=== PATIENT | male | born 1980 | race Caucasian/White ===

== ENCOUNTER 2018-09-23 17:01 | Inpatient (IN) | payer OTHER ==
[2018-09-23 19:44] VITALS: BMI 25.4
--- NOTE | 2018-09-23 21:31 | HP ---
COWS - Scale Resting Pulse: 1= LA 81-100 Sweatin=Flushed/Facial Moisture Restless Observation: 3= Extraneous Movement Pupil Size: 0= Normal to Room Light Bone or Joint Aches: 0= None Runny Nose/ Eye Tearin= Runny Nose/Eyes GI Upset > 30mins: 1= Stomach Cramp Tremor Observation: 0= None Yawning Observation: 1= 1-2x During Session Anxiety or Irritability: 2=Irritable/Anxious Goose Flesh Skin: 0=Smooth Skin COWS Score: 12 CIWA Score - Admission Criteria [facility] Guidelines: Admission for Medically Managed Detox: Requires at least one of the followin. CIWA greater than 12 2. Seizures within the past 24 hours 3. Delirium tremens within the past 24 hours 4. Hallucinations within the past 24 hours 5. Acute intervention needed for co occurring medical disorder 6. Acute intervention needed for co occurring psychiatric disorder 7. Severe withdrawal that cannot be handled at a lower level of care (continued vomiting, continued diarrhea, abnormal vital signs) requiring intravenous medication and/or fluids 8. Admission [facility] Chief Complaint: c/o withdrawal sx's. seeking detox Allergies/Adverse Reactions: Allergies Allergy/AdvReac Type Severity Reaction Status Date / Time No Known Allergies Allergy Verified 09/23/18 21:26 History of Present Illness: 38 Y.O. MALE WITH HX/O POLY SUBSTANCE ABUSE HERE FOR HEROIN DETOX. STEPHANIE IS REFERRED BY [facility] AFTER PRESENTING THERE FOR DETOX AND THERE WERE NO BEDS. HE PRESENTS WITH C/O WORSENING WITHDRAWAL SX'S. COWS 12. DENIES ETOH USE. ELIANE. O. UTOX + THC, MTD, RICHARD, OPI. CLIENT STATES HE IS NOT MMTP. DENIES MEDICAL AND PSYCH HX/O. DENIES SI/HI, AVH AND HX/O OVERDOSE. REPORTS LONGEST CLEAN TIME 3 MONTHS WHILE INCARCERATED. LAST DETOX 1 MONTH AGO AT THE [facility] IMMEDIATELY RELAPSING AFTER DC. HOMELESS, UNEMPLOYED, DENIES LEGALS. Exam Limitations: No Limitations - Ebola screening Have you traveled outside of the country in the last 21 days: No (N) Have you had contact with anyone from an Ebola affected area: No Have you been sick,other than usual withdrawal symptoms: No Do you have a fever: No - Review of Systems Constitutional: Chills, Night Sweats, Changes in sleep, Unintentional Wgt. Loss EENT: reports: No Symptoms Reported Respiratory: reports: No Symptoms reported Cardiac: reports: No Symptoms Reported GI: reports: Diarrhea, Abdominal cramping : reports: No Symptoms Reported Musculoskeletal: reports: Back Pain (DUE TO WITHDRAWAL) Integumentary: reports: Flushing Neuro: reports: No Symptoms reported Endocrine: reports: No Symptoms Reported Hematology: reports: No Symptoms Reported Psychiatric: reports: Orientated x3, other (DEPRESSED AFFECT) Other Systems: Reviewed and Negative Patient History - Patient Medical History Hx Anemia: No Hx Asthma: No Hx Chronic Obstructive Pulmonary Disease (COPD): No Hx Cancer: No Hx Cardiac Disorders: No Hx Congestive Heart Failure: No Hx Hypertension: No Hx Hypercholesterolemia: No Hx Pacemaker: No HX Cerebrovascular Accident: No Hx Seizures: No Hx Dementia: No Hx Diabetes: No Hx Gastrointestinal Disorders: No Hx Liver Disease: No Hx Genitourinary Disorders: No Hx Sexually Transmitted Disorders: No Hx Renal Disease (ESRD): No Hx Thyroid Disease: No Hx Human Immunodeficiency Virus (HIV): No Hx Hepatitis C: No Hx Depression: No Hx Suicide Attempt: No Hx Bipolar Disorder: No Hx Schizophrenia: No Other Medical History: DENIES - Patient Surgical History Past Surgical History: No - PPD History Previous Implant?: Yes Documented Results: Negative w/o proof Implanted On Prior [facility] Admission?: No PPD to be Administered?: Yes - Smoking Cessation Smoking history: Current every day smoker Have you smoked in the past 12 months: Yes Aproximately how many cigarettes per day: 4 Cigars Per Day: 0 Hx Chewing Tobacco Use: No Initiated information on smoking cessation: Yes 'Breaking Loose' booklet given: 09/23/18 - Substance & Tx. History Hx Alcohol Use: No Hx Substance Use: Yes Substance Use Type: Cocaine, Heroin, Marijuana Hx Substance Use Treatment: Yes ([facility] ) - Substances Abused HEROIN Route: Injection Frequency: Daily Amount used: 8 BAGS Age of first use: 35 Date of Last Use: 09/22/18 COCAINE Route: Smoking Frequency: 3-6 times per week Amount used: $30/ WK Age of first use: 36 Date of Last Use: 09/23/18 THC Route: Oral Frequency: Daily Amount used: 1 BLUNT Age of first use: 19 Date of Last Use: 09/23/18 Family Disease History - Family Disease History Family History: Denies Admission Physical Exam BHS - Vital Signs Vital Signs: Vital Signs - 24 hr 09/23/18 19:40 Temperature 98.7 F Pulse Rate 71 Respiratory 18 Rate Blood Pressure 102/65 - Physical General Appearance: Yes: Appropriately Dressed, Disheveled, Moderate Distress, Irritable, Sweating (FLUSHED) HEENTM: Yes: EOMI, Normocephalic, Normal Voice, LELAND, Pharynx Normal, Nasal Congestion Respiratory: Yes: Chest Non-Tender, Lungs Clear, Normal Breath Sounds, No Respiratory Distress, No Accessory Muscle Use Neck: Yes: No masses,lesions,Nodules, Supple, Trachea in good position Breast: Yes: Breast Exam Deferred Cardiology: Yes: Regular Rhythm, S1, S2, Tachycardia Abdominal: Yes: Non Tender, Soft, Increased Bowel Sounds, Protuberent Genitourinary: Yes: Other (NO C/O) Back: Yes: Normal Inspection Musculoskeletal: Yes: full range of Motion, Gait Steady, Back pain (C/O) Extremities: Yes: Normal Capillary Refill, Normal Range of Motion, Non-Tender, Swelling (BLE NON PITTING) Neurological: Yes: Fully Oriented, Alert, Motor Strength 5/5, Depressed Affect Integumentary: Yes: Warm, Moist, Track Isaac (R AC) Lymphatic: Yes: Within Normal Limits - Diagnostic (1) Opioid dependence with withdrawal Status: Acute (2) Cocaine dependence, uncomplicated Status: Acute (3) Cannabis abuse, uncomplicated Status: Acute (4) Depressed affect Status: Acute (5) Nicotine dependence Status: Acute Qualifiers: Nicotine product type: cigarettes Substance use status: in withdrawal Qualified Code(s): F17.213 - Nicotine dependence, cigarettes, with withdrawal (6) Homeless Status: Acute (7) Substance induced mood disorder Status: Suspected (8) Swelling of both lower extremities Status: Acute (9) At risk for dehydration due to poor fluid intake Status: Acute Cleared for Admission [facility] - Detox or Rehab [facility] Level of Care: Medically Managed Detox Regimen/Protocol: Methadone Claeared for Rehab Admission: No S Breath Alcohol Content Breath Alcohol Content: 0 Urine Drug Screen - Control Is Test Valid: Yes - Results Drug Screen Negative: No Urine Drug Screen Results: THC-Marijuana, RICHARD-Cocaine, OPI-Opiates, MTD- Methadone Inpatient Rehab Admission - Rehab Decision to Admit Inpatient rehab admission?: No
[2018-09-23] MEDS ORDERED: MAGNESIUM HYDROX 2400MG/30ML ORAL SUSPENSION 30 ML CUP PO PRN (21:47)
[2018-09-23] MEDS ORDERED: guaiFENesin 200 MG/10 ML 10 ML UNIT-DOSE CUPS PO PRN (21:47)
[2018-09-23] MEDS ORDERED: ACETAMINOPHEN 325 MG TABLET (FP) PO PRN (21:47)
[2018-09-23] MEDS ORDERED: MELATONIN 5 MG TABLETS PO PRN (21:47)
[2018-09-23] MEDS ORDERED: NICOTINE POLACRILEX 2 MG GUM BUC PRN (21:47)
[2018-09-23] MEDS ORDERED: MENTHOL/PHENOL 1 EACH UD MM PRN (21:47)
[2018-09-23] MEDS ORDERED: IBUPROFEN 400 MG TABLET (FP) PO PRN (21:47)
[2018-09-23] MEDS ORDERED: ONDANSETRON *ODT* 4 MG TABLET SL PRN (21:47)
[2018-09-23] MEDS ORDERED: cloNIDine HCL 0.1 MG TABLET PO PRN (21:47)
[2018-09-23] MEDS ORDERED: MAGNESIUM CITRATE 300 ML BOTTLE PO PRN (21:47)
[2018-09-23] MEDS ORDERED: DICYCLOMINE HCL 10 MG CAPSULE PO PRN (21:47)
[2018-09-23] MEDS ORDERED: NALOXONE HCL 0.4 MG/ML VIAL IVPUSH PRN (21:47)
[2018-09-23] MEDS ORDERED: METHOCARBAMOL 500 MG TABLET PO PRN (21:47)
[2018-09-23] MEDS ORDERED: hydrOXYzine PAMOATE 25 MG CAPSULE (FP) PO PRN (21:47)
[2018-09-23] MEDS ORDERED: MAG HYDROX/AL HYDROX/SIMETH 30 ML UNIT-DOSE CUP PO PRN (21:47)
[2018-09-23] MEDS ORDERED: BISMUTH SUBSALICYLATE 524 MG/30 ML UD PO PRN (21:47)
[2018-09-23] MEDS ORDERED: P-EPHED 60MG/TRIPROLIDI 2.5MG TABLET PO PRN (21:47)
[2018-09-23] MEDS ORDERED: METHADONE HCL 10 MG TABLET (FOR DETOX USE ONLY) PO ONE ×2 (21:49→23:00)
[2018-09-23] MEDS ORDERED: THIAMINE HCL 100 MG TABLET (FP) PO SCH (22:00)
[2018-09-24] MEDS ORDERED: NALOXONE HCL 0.4 MG/ML VIAL IVPUSH PRN (00:46)
[2018-09-24] MEDS ORDERED: cloNIDine HCL 0.1 MG TABLET PO PRN (00:46)
[2018-09-24] MEDS ORDERED: METHADONE HCL 10 MG TABLET (FOR DETOX USE ONLY) PO ONE ×2 (01:03→10:00)
[2018-09-24 01:49] LABS: URINE APPEARANCE CLEAR; URINE BILIRUBIN NEGATIVE (<2.0 mg/dL); URINE COLOR YELLOW; URINE GLUCOSE (UA) NEGATIVE (NEGATIVE); URINE KETONE NEGATIVE (NEGATIVE); URINE LEUK ESTERASE NEGATIVE (NEGATIVE); URINE NITRITE NEGATIVE (NEGATIVE); URINE PROTEIN NEGATIVE (NEGATIVE)
[2018-09-24 09:31] VITALS: BP 107/57; PULSE 82; TEMP 98.9
[2018-09-24] MEDS ORDERED: PRENATAL VITAMINS W/ FOLIC ACID TABLET (FP) PO SCH (10:00)
[2018-09-24] MEDS ORDERED: METHADONE HCL 5 MG TABLET (FOR DETOX USE ONLY) PO ONE (10:00)
[2018-09-24] MEDS ORDERED: NICOTINE 14 MG/24 HOURS TOPICAL PATCH TD SCH (10:00)
--- NOTE | 2018-09-24 10:45 | EKG ---
Test Reason : Blood Pressure : / mmHG Vent. Rate : 069 BPM Atrial Rate : 069 BPM P-R Int : 158 ms QRS Dur : 084 ms QT Int : 392 ms P-R-T Axes : 080 070 041 degrees QTc Int : 420 ms NORMAL SINUS RHYTHM NORMAL ECG NO PREVIOUS ECGS AVAILABLE Confirmed by Shon Lowe MD ([id number]) on 09/24/2018 10:44:38 AM Referred By: Confirmed By:Shon Lowe MD
[2018-09-24 11:23] LABS: HEMATOCRIT 34.8 % (35.4-49); MCH 31.3 pg (25.7-33.7); MCHC 34.4 g/dl (32.0-35.9); MEAN CELL VOLUME 90.9 fl (80-96); MEAN PLT VOLUME 8.4 fl (7.5-11.1); PLATELET COUNT 243 K/MM3 (134-434); RBC 3.83 M/mm3 (4.00-5.60); RDW 16.2 % (11.9-15.9); WHITE BLOOD COUNT 3.8 K/mm3 (4.0-10.0)
[2018-09-24 11:40] LABS: ALBUMIN 3.1 g/dl (3.4-5.0); ALK PHOS 69 U/L (45-117); ANION GAP 3 MMOL/L (8-16); BILIRUBIN,TOTAL 0.5 mg/dL (0.2-1); BLOOD UREA NITROGEN 10 mg/dL (7-18); CALCIUM 8.1 mg/dL (8.5-10.1); CHLORIDE 107 mmol/L (98-107); CO2 30 mmol/L (21-32); CREATININE 0.7 mg/dL (0.55-1.3); GLUCOSE,RANDOM 77 mg/dL (74-106); POTASSIUM 4.6 mmol/L (3.5-5.1); SGOT/AST 18 U/L (15-37); SGPT/ALT 28 U/L (13-61); SODIUM 140 mmol/L (136-145); TOT PROT 6.9 g/dl (6.4-8.2)
--- NOTE | 2018-09-24 15:31 | DS ---
[facility] Detox Discharge Summary Admission Date: 09/23/18 Discharge Date: 09/24/18 - History Present History: Opioid Dependence Additional Comments: 38 years old male admitted on 09/23/18 for opiate withdrawal stabilization patient insists to leave the detox unit spoke with the patient in his room patietn reporting that does not work in the hospital the food and the closing in environment as well as the patient had argument with a male patient who showing penis to a female patient patient felt disgusted and unable to stay focus on detox then to rehab "not helping this time" patient is alert no acute distress denies suicidal ideation - Physical Exam Results Vital Signs: Vital Signs Temperature 98.9 F 09/24/18 09:31 Pulse Rate 82 09/24/18 09:31 Respiratory Rate 18 09/24/18 09:31 Blood Pressure 107/57 L 09/24/18 09:31 O2 Sat by Pulse Oximetry (%) Pertinent Admission Physical Exam Findings: opiate withdrawal sx Laboratory Last Values WBC 3.8 K/mm3 (4.0-10.0) L 09/24/18 07:30 RBC 3.83 M/mm3 (4.00-5.60) L 09/24/18 07:30 Hgb 12.0 GM/dL (11.7-16.9) 09/24/18 07:30 Hct 34.8 % (35.4-49) L 09/24/18 07:30 MCV 90.9 fl (80-96) 09/24/18 07:30 MCH 31.3 pg (25.7-33.7) 09/24/18 07:30 MCHC 34.4 g/dl (32.0-35.9) 09/24/18 07:30 RDW 16.2 % (11.9-15.9) H 09/24/18 07:30 Plt Count 243 K/MM3 (134-434) 09/24/18 07:30 MPV 8.4 fl (7.5-11.1) 09/24/18 07:30 Sodium 140 mmol/L (136-145) 09/24/18 07:30 Potassium 4.6 mmol/L (3.5-5.1) 09/24/18 07:30 Chloride 107 mmol/L (98-107) 09/24/18 07:30 Carbon Dioxide 30 mmol/L (21-32) 09/24/18 07:30 Anion Gap 3 MMOL/L (8-16) L 09/24/18 07:30 BUN 10 mg/dL (7-18) 09/24/18 07:30 Creatinine 0.7 mg/dL (0.55-1.3) 09/24/18 07:30 Creat Clearance w eGFR 124.90 (>60) 09/24/18 07:30 Random Glucose 77 mg/dL (74-106) 09/24/18 07:30 Calcium 8.1 mg/dL (8.5-10.1) L 09/24/18 07:30 Total Bilirubin 0.5 mg/dL (0.2-1) 09/24/18 07:30 AST 18 U/L (15-37) 09/24/18 07:30 ALT 28 U/L (13-61) 09/24/18 07:30 Alkaline Phosphatase 69 U/L (45-117) 09/24/18 07:30 Total Protein 6.9 g/dl (6.4-8.2) 09/24/18 07:30 Albumin 3.1 g/dl (3.4-5.0) L 09/24/18 07:30 Urine Color Yellow 09/23/18 23:10 Urine Appearance Clear 09/23/18 23:10 Urine pH 5.0 (5.0-8.0) 09/23/18 23:10 Ur Specific [place] 1.026 (1.010-1.035) 09/23/18 23:10 Urine Protein Negative (NEGATIVE) 09/23/18 23:10 Urine Glucose (UA) Negative (NEGATIVE) 09/23/18 23:10 Urine Ketones Negative (NEGATIVE) 09/23/18 23:10 Urine Blood Negative (NEGATIVE) 09/23/18 23:10 Urine Nitrite Negative (NEGATIVE) 09/23/18 23:10 Urine Bilirubin Negative (<2.0 mg/dL) 09/23/18 23:10 Urine Urobilinogen 2.0 mg/dL (0.2-1.0) 09/23/18 23:10 Ur Leukocyte Esterase Negative (NEGATIVE) 09/23/18 23:10 RPR Titer Nonreactive (NONREACTIVE) 09/24/18 07:30 lab noted encourage the patient bring in lab report to aftercare - Treatment Hospital Course: Detox Protocol Followed, Responded well Patient has Accepted a Rehab Referral to: [facility] - Medication Discharge Medications: Ambulatory Orders NK [No Known Home Medication] 09/23/18 - Diagnosis (1) Nicotine dependence Status: Acute Qualifiers: Nicotine product type: cigarettes Substance use status: in withdrawal Qualified Code(s): F17.213 - Nicotine dependence, cigarettes, with withdrawal (2) Opioid dependence with withdrawal Status: Acute (3) Substance induced mood disorder Status: Suspected - AMA Did Patient Leave Against Medical Advice: Yes
[2018-09-25] MEDS ORDERED: METHADONE HCL 5 MG TABLET (FOR DETOX USE ONLY) PO ONE (10:00)
[2018-09-25] MEDS ORDERED: METHADONE HCL 10 MG TABLET (FOR DETOX USE ONLY) PO ONE (10:00)
[2018-09-26] MEDS ORDERED: METHADONE HCL 5 MG TABLET (FOR DETOX USE ONLY) PO ONE (06:00)
[2018-09-26] MEDS ORDERED: METHADONE HCL 10 MG TABLET (FOR DETOX USE ONLY) PO ONE (10:00)
[2018-09-27] MEDS ORDERED: METHADONE HCL 5 MG TABLET (FOR DETOX USE ONLY) PO ONE (06:00)
== END 2018-09-24 12:18 | disposition home or self-care (01) | DRG 773 ==
LOC: YASAS 17:01 → Y3N 22:42
PROVIDERS: ADMIT Surgery; ATTEND Surgery
PROC: HZ2ZZZZ Detoxification Services for Substance Abuse Treatment (ICD-10-PCS; principal; 2018-09-23)
DX: F11.23 Opioid dependence with withdrawal (principal); F14.20 Cocaine dependence, uncomplicated; F12.10 Cannabis abuse, uncomplicated; F17.213 Nicotine dependence, cigarettes, with withdrawal; F19.24 Other psychoactive substance dependence with psychoactive substance-induced mood disorder; M79.89 Other specified soft tissue disorders; R60.0 Localized edema; R45.89 Other symptoms and signs involving emotional state; Z91.89 Other specified personal risk factors, not elsewhere classified; Z59.0 Homelessness
CPT/HCPCS: 36415; 80053; 81003; 85027; 86593; 93005; 93010